=== PATIENT | male | born 1945 ===

== ENCOUNTER 2017-08-02 06:03 | Day surgery (SDC) | payer OTHER | END 2017-08-02 09:50 | disposition home or self-care (01) | LOC: AMB-ENDOS 06:03 | DX: D12.2 Benign neoplasm of ascending colon (principal); K63.5 Polyp of colon; D12.3 Benign neoplasm of transverse colon ==

== ENCOUNTER 2019-11-24 11:26 | Inpatient (IN) | payer OTHER ==
[~2019-11-24] VITALS: Ht 172.7 cm; Wt 77.1 kg
[2019-11-24] MEDS ORDERED: FORTAMET1000 MG (11:45)
[2019-11-24] MEDS ORDERED: LOTREL 5-40 MG1 EACH (11:46)
[2019-11-24] MEDS ORDERED: GLIPIZIDE XL10 MG (11:46)
[2019-11-24] MEDS ORDERED: ASPIR 8181 MG (11:48)
[2019-11-26] MEDS ORDERED: CLOPIDOGREL BIS75 MG PO (12:29)
[2019-11-26] MEDS ORDERED: ATORVASTATIN CA20 MG PO (12:29)
== END 2019-11-26 13:53 | disposition home or self-care (01) | DRG 65 ==
LOC: ER 11:26 → SURH 15:13 → SEC-K 15:13 → SURH 19:45 → SEC-K 20:24 → SURH 20:25
PROVIDERS: ADMIT Internal Medicine; ATTEND Internal Medicine
PROC: B030ZZZ Magnetic Resonance Imaging (MRI) of Brain (ICD-10-PCS; principal; 2019-11-24)
PROC: 4A12X4Z Monitoring of Cardiac Electrical Activity, External Approach (ICD-10-PCS; 2019-11-24)
PROC: B24BZZZ Ultrasonography of Heart with Aorta (ICD-10-PCS; 2019-11-24)
PROC: B34 Imaging, Upper Arteries, Ultrasonography (ICD-10-PCS; 2019-11-24)
PROC: BW28ZZZ Computerized Tomography (CT Scan) of Head (ICD-10-PCS; 2019-11-24)
DX: I63.81 Other cerebral infarction due to occlusion or stenosis of small artery (principal); I69.951 Hemiplegia and hemiparesis following unspecified cerebrovascular disease affecting right dominant side; I10 Essential (primary) hypertension; E11.65 Type 2 diabetes mellitus with hyperglycemia; R47.81 Slurred speech; I35.0 Nonrheumatic aortic (valve) stenosis; Z20.828 Contact with and (suspected) exposure to other viral communicable diseases; Z79.4 Long term (current) use of insulin
CPT/HCPCS: 70551